=== PATIENT | female | born 1975 | race African-American/Black ===

== ENCOUNTER 2018-10-24 13:33 | Inpatient (IN) | payer OTHER ==
[2018-10-24 14:50] VITALS: BMI 16.0
--- NOTE | 2018-10-24 16:26 | HP ---
CIWA Score Nausea/Vomitin-No Nausea/No Vomiting Muscle Tremors: None Anxiety: 0-No Anxiety, at Ease Agitation: 0-Normal Activity Paroxysmal Sweats: 2 Orientation: 0-Oriented Tacttile Disturbances: 0-None Auditory Disturbances: 0-None Visual Disturbances: 0-None Headache: 0-None Present CIWA-Ar Total Score: 2 - Admission Criteria OASAS Guidelines: Admission for Medically Managed Detox: Requires at least one of the followin. CIWA greater than 12 2. Seizures within the past 24 hours 3. Delirium tremens within the past 24 hours 4. Hallucinations within the past 24 hours 5. Acute intervention needed for co occurring medical disorder 6. Acute intervention needed for co occurring psychiatric disorder 7. Severe withdrawal that cannot be handled at a lower level of care (continued vomiting, continued diarrhea, abnormal vital signs) requiring intravenous medication and/or fluids 8. Admission ROS S - HPI Allergies/Adverse Reactions: Allergies Allergy/AdvReac Type Severity Reaction Status Date / Time fish derived Allergy Verified 10/24/18 17:11 No Known Drug Allergies Allergy Verified 10/24/18 17:11 shellfish derived Allergy Verified 10/24/18 17:11 seafood Allergy Uncoded 10/24/18 17:11 History of Present Illness: pt here requesting detox from etoh use , reports started in teenage years (13- 15) , reports daily 10 drinks liquor , in the past beer , reports currently binge- drinking once / month , reports irritability and cravings if not drinking , denies seizures, blackouts, tremors , falls while intoxicated , current symptoms as above , latest use yesterday 2-3 drinks. cannabis use : daily " a lot " since teens crack cocaine - stopped in tobacco :reports smoking " a lot " , trying to quit . PMHx : dm ( dx 2009 type II) , asthma ( childhood , [place]/ [place]) , bronchitis meds : verified w/ pharmacy [id number] PShx : denies psych : depression , bipolar d/o . Exam Limitations: No Limitations - Ebola screening Have you traveled outside of the country in the last 21 days: No Have you had contact with anyone from an Ebola affected area: No Have you been sick,other than usual withdrawal symptoms: No Do you have a fever: No - Review of Systems Constitutional: No Symptoms Reported EENT: reports: See HPI, Other (glasses, upper dentures) Respiratory: reports: No Symptoms reported Cardiac: reports: No Symptoms Reported GI: reports: No Symptoms Reported : reports: No Symptoms Reported Musculoskeletal: reports: No Symptoms Reported Integumentary: reports: No Symptoms Reported Neuro: reports: No Symptoms reported Endocrine: reports: See HPI Psychiatric: reports: Orientated x3 Patient History - Smoking Cessation Smoking history: Current every day smoker Have you smoked in the past 12 months: Yes Hx Chewing Tobacco Use: No Initiated information on smoking cessation: No - Substances Abused Alcohol Route: Oral Frequency: Daily Amount used: quart/day of liquor Age of first use: 14 Date of Last Use: 10/18/18 Family Disease History - Family Disease History Family Disease History: Other: Grandparent (aunt - Dm , asthma ), Father (asthma ), Mother (asthma ) Admission Physical Exam BHS - Vital Signs Vital Signs: Vital Signs - 24 hr 10/24/18 14:48 Temperature 98.5 F Pulse Rate 90 Respiratory 18 Rate Blood Pressure 105/61 - Physical General Appearance: Yes: No Apparent Distress, Thin, Anxious HEENTM: Yes: EOMI, Hearing grossly Normal, Normocephalic, Normal Voice Respiratory: Yes: Chest Non-Tender, Lungs Clear, Normal Breath Sounds Neck: Yes: No masses,lesions,Nodules, Trachea in good position Cardiology: Yes: Regular Rhythm, Regular Rate, S1, S2 Abdominal: Yes: Normal Bowel Sounds, Soft Back: Yes: Normal Inspection Musculoskeletal: Yes: Gait Steady Extremities: Yes: Normal Range of Motion, Non-Tender Neurological: Yes: Fully Oriented, Alert, Motor Strength 5/5 Integumentary: Yes: Normal Color - Diagnostic (1) Cannabis dependence Current Visit: Yes Status: Acute (2) Alcohol abuse Current Visit: Yes Status: Acute (3) Nicotine dependence Current Visit: Yes Status: Acute Qualifiers: Nicotine product type: cigarettes BHS Breath Alcohol Content Breath Alcohol Content: 0 Urine Pregancy Test - Result Urine Test Results: Negative - NO Line Present Urine Drug Screen - Results Drug Screen Negative: No Urine Drug Screen Results: THC-Marijuana Inpatient Rehab Admission - Rehab Decision to Admit Inpatient rehab admission?: Yes - Initial Determination Are CD services needed?: Yes Free of communicable disease: Yes Not in need of hospitalization: Yes - Rehab Admission Criteria Previous failed treatment: Yes Poor recovery environment: Yes Comorbidities: No Lacks judgement: Yes Patient is meeting Inpatient Rehab admission criteria:: Yes
[2018-10-24] MEDS ORDERED: MAGNESIUM HYDROX 2400MG/30ML ORAL SUSPENSION 30 ML CUP PO PRN (16:34)
[2018-10-24] MEDS ORDERED: MENTHOL/PHENOL 1 EACH UD MM PRN (16:34)
[2018-10-24] MEDS ORDERED: guaiFENesin 200 MG/10 ML 10 ML UNIT-DOSE CUPS PO PRN (16:34)
[2018-10-24] MEDS ORDERED: ACETAMINOPHEN 325 MG TABLET (FP) PO PRN (16:34)
[2018-10-24] MEDS ORDERED: MAG HYDROX/AL HYDROX/SIMETH 30 ML UNIT-DOSE CUP PO PRN (16:34)
[2018-10-24] MEDS ORDERED: MAGNESIUM CITRATE 300 ML BOTTLE PO PRN (16:34)
[2018-10-24] MEDS ORDERED: P-EPHED 60MG/TRIPROLIDI 2.5MG TABLET PO PRN (16:34)
[2018-10-24] MEDS ORDERED: IBUPROFEN 400 MG TABLET (FP) PO PRN (16:34)
[2018-10-24] MEDS ORDERED: ALBUTEROL SO4 0.083% IH SOL 2.5 MG/3 ML VIAL.NEB. NEB PRN (16:36)
[2018-10-24] MEDS ORDERED: MELATONIN 5 MG TABLETS PO PRN (22:00)
[2018-10-24] MEDS: PATIENT'S OWN MEDICATION (NON-FORMULARY) (Clobetasol Propionate/Emoll [Clobetasol Emollien TP SCH (22:17)
[2018-10-24] MEDS: THIAMINE HCL 100 MG TABLET (FP) PO SCH (22:55)
[2018-10-24] MEDS: CYPROHEPTADINE HCL 4 MG TABLET PO SCH (22:55)
[2018-10-24] MEDS: FERROUS SO4 325 MG TABLET (FP) PO SCH (22:55)
[2018-10-25] MEDS: metFORMIN HCL 500 MG TABLET (FP) PO SCH (06:38)
[2018-10-25] MEDS: PRENATAL VITAMINS W/ FOLIC ACID TABLET (FP) PO SCH (10:12)
[2018-10-25] MEDS: FERROUS SO4 325 MG TABLET (FP) PO SCH ×2 (10:12→21:17)
[2018-10-25] MEDS: NICOTINE 14 MG/24 HOURS TOPICAL PATCH TD SCH (10:13)
[2018-10-25] MEDS ORDERED: TUBERCULIN PPD 5 TU/0.1ML VIAL ID ONE (11:46)
[2018-10-25] MEDS: SPIRONOLACTONE 25 MG TABLET (FP) PO SCH (12:02)
[2018-10-25 12:09] LABS: MCH 29.8 pg (25.7-33.7); MCHC 32.8 g/dl (32.0-36.0); MEAN CELL VOLUME 90.8 fl (80-96)
[2018-10-25 12:12] LABS: HEMATOCRIT 49.3 % (32.4-45.2); HEMOGLOBIN 16.2 GM/dL (10.7-15.3); MEAN PLT VOLUME 9.3 fl (7.5-11.1); PLATELET COUNT 268 K/MM3 (134-434); RBC 5.43 M/mm3 (3.60-5.2); RDW 14.2 % (11.6-15.6); WHITE BLOOD COUNT 8.7 K/mm3 (4.0-10.0)
[2018-10-25 12:33] LABS: ALBUMIN 3.5 g/dl (3.4-5.0); ALK PHOS 103 U/L (45-117); ANION GAP 9 MMOL/L (8-16); BILIRUBIN,TOTAL 0.4 mg/dL (0.2-1); BLOOD UREA NITROGEN 9 mg/dL (7-18); CALCIUM 8.8 mg/dL (8.5-10.1); CHLORIDE 106 mmol/L (98-107); CO2 24 mmol/L (21-32); CREATININE 0.9 mg/dL (0.55-1.3); GLUCOSE,RANDOM 72 mg/dL (74-106); POTASSIUM 4.5 mmol/L (3.5-5.1); SGOT/AST 19 U/L (15-37); SGPT/ALT 22 U/L (13-61); SODIUM 139 mmol/L (136-145); TOT PROT 6.7 g/dl (6.4-8.2)
[2018-10-25] MEDS: PATIENT'S OWN MEDICATION (NON-FORMULARY) (Clobetasol Propionate/Emoll [Clobetasol Emollien TP SCH (13:51)
[2018-10-25 19:44] LABS: URINE APPEARANCE CLEAR; URINE BILIRUBIN NEGATIVE (<2.0 mg/dL); URINE COLOR STRAW; URINE GLUCOSE (UA) NEGATIVE (NEGATIVE); URINE KETONE NEGATIVE (NEGATIVE); URINE LEUK ESTERASE NEGATIVE (NEGATIVE); URINE NITRITE NEGATIVE (NEGATIVE); URINE PROTEIN NEGATIVE (NEGATIVE); URINE UROBILINOGEN NEGATIVE mg/dL (0.2-1.0)
[2018-10-25] MEDS: THIAMINE HCL 100 MG TABLET (FP) PO SCH (21:37)
[2018-10-25] MEDS: CYPROHEPTADINE HCL 4 MG TABLET PO SCH (21:39)
[2018-10-26] MEDS: metFORMIN HCL 500 MG TABLET (FP) PO SCH (07:26)
[2018-10-26] MEDS: SPIRONOLACTONE 25 MG TABLET (FP) PO SCH (10:21)
[2018-10-26] MEDS: PRENATAL VITAMINS W/ FOLIC ACID TABLET (FP) PO SCH (10:21)
[2018-10-26] MEDS: NICOTINE 14 MG/24 HOURS TOPICAL PATCH TD SCH (10:21)
[2018-10-26] MEDS: FERROUS SO4 325 MG TABLET (FP) PO SCH ×2 (10:22→21:17)
[2018-10-26] MEDS: PATIENT'S OWN MEDICATION (NON-FORMULARY) (Clobetasol Propionate/Emoll [Clobetasol Emollien TP SCH (10:26)
[2018-10-26] MEDS: THIAMINE HCL 100 MG TABLET (FP) PO SCH (21:17)
[2018-10-26] MEDS: CYPROHEPTADINE HCL 4 MG TABLET PO SCH (21:17)
[2018-10-27] MEDS: metFORMIN HCL 500 MG TABLET (FP) PO SCH (06:50)
[2018-10-27] MEDS: FERROUS SO4 325 MG TABLET (FP) PO SCH ×2 (10:47→21:49)
[2018-10-27] MEDS: NICOTINE 14 MG/24 HOURS TOPICAL PATCH TD SCH (10:48)
[2018-10-27] MEDS: PRENATAL VITAMINS W/ FOLIC ACID TABLET (FP) PO SCH (10:48)
[2018-10-27] MEDS: PATIENT'S OWN MEDICATION (NON-FORMULARY) (Clobetasol Propionate/Emoll [Clobetasol Emollien TP SCH (10:49)
[2018-10-27] MEDS: SPIRONOLACTONE 25 MG TABLET (FP) PO SCH ×2 (11:05→11:13)
--- NOTE | 2018-10-27 13:49 | PN ---
[facility] Progress Note Note: PATIENTS PHARMACY CALLED AT [phone] TO CONFIRM ESTRADIOL ORDER. PHARMACIST THALIA CONFIRMED ESTRADIOL 10MG IM EVERY 2 WEEKS. MEDICATION ORDERED. Vital Signs Temperature 98.9 F 10/27/18 07:09 Pulse Rate 105 H 10/27/18 10:55 Respiratory Rate 18 10/27/18 07:09 Blood Pressure 105/66 10/27/18 10:55 O2 Sat by Pulse Oximetry (%) Laboratory Tests 10/25/18 10/25/18 10/25/18 06:36 09:40 09:40 WBC 8.7 RBC 5.43 H Hgb 16.2 H Hct 49.3 H MCV 90.8 MCH 29.8 MCHC 32.8 RDW 14.2 Plt Count 268 MPV 9.3 Sodium 139 Potassium 4.5 Chloride 106 Carbon Dioxide 24 Anion Gap 9 BUN 9 Creatinine 0.9 Creat Clearance w eGFR > 60 POC Glucometer 83 Random Glucose 72 L Calcium 8.8 Total Bilirubin 0.4 AST 19 ALT 22 Alkaline Phosphatase 103 Total Protein 6.7 Albumin 3.5 Urine Color Urine Appearance Urine pH Ur Specific [place] Urine Protein Urine Glucose (UA) Urine Ketones Urine Blood Urine Nitrite Urine Bilirubin Urine Urobilinogen Ur Leukocyte Esterase RPR Titer 10/25/18 10/25/18 10/25/18 09:40 14:00 16:50 WBC RBC Hgb Hct MCV MCH MCHC RDW Plt Count MPV Sodium Potassium Chloride Carbon Dioxide Anion Gap BUN Creatinine Creat Clearance w eGFR POC Glucometer 72 Random Glucose Calcium Total Bilirubin AST ALT Alkaline Phosphatase Total Protein Albumin Urine Color Straw Urine Appearance Clear Urine pH 7.0 Ur Specific [place] 1.009 L Urine Protein Negative Urine Glucose (UA) Negative Urine Ketones Negative Urine Blood Negative Urine Nitrite Negative Urine Bilirubin Negative Urine Urobilinogen Negative Ur Leukocyte Esterase Negative RPR Titer Nonreactive 10/26/18 10/26/18 10/27/18 07:26 17:23 06:47 WBC RBC Hgb Hct MCV MCH MCHC RDW Plt Count MPV Sodium Potassium Chloride Carbon Dioxide Anion Gap BUN Creatinine Creat Clearance w eGFR POC Glucometer 81 70 114 Random Glucose Calcium Total Bilirubin AST ALT Alkaline Phosphatase Total Protein Albumin Urine Color Urine Appearance Urine pH Ur Specific [place] Urine Protein Urine Glucose (UA) Urine Ketones Urine Blood Urine Nitrite Urine Bilirubin Urine Urobilinogen Ur Leukocyte Esterase RPR Titer
[2018-10-27] MEDS ORDERED: ONDANSETRON 8 MG TABLET (FP) PO PRN (15:04)
--- NOTE | 2018-10-27 15:04 | PN ---
[facility] Progress Note Note: NOTIFIED BY RN PATIENT HAD EPISODE OF NAUSEA AND VOMITING X 2. PATIENT EVALUATED WHILE IN BED. DENIES ABDOMINAL PAIN, CHEST PAIN, SOB AND DIZZINESS. PATIENT REPORTS HAVING REGULAR BM AND LAST TIME SHE MOVED BOWELS WAS LAST NIGHT. REPORTS GOOD APPETITE UP UNTIL TODAY. V/S T 99.5-72-18 BP 117/82 PE: ALERT AND ORIENTED X 3 SKIN WARM AND DRY CAR S1S2 RESP CTA BL GI SOFT BS+ NT, ND EXT NO EDEMA A/P NAUSEA AND VOMITING WILL ORDER ZOFRAN FOR N/V ENCOURAGE ORAL FLUIDS CONTINUE TO MONITOR IF SX, WORSEN DO LAB WORK UP
[2018-10-27] MEDS ORDERED: ONDANSETRON *ODT* 4 MG TABLET SL PRN (15:28)
[2018-10-27] MEDS ORDERED: PT OWN MED DRAWER 7, Y5N ONE (16:44)
[2018-10-27] MEDS: CYPROHEPTADINE HCL 4 MG TABLET PO SCH (21:49)
[2018-10-27] MEDS: THIAMINE HCL 100 MG TABLET (FP) PO SCH (21:49)
[2018-10-28] MEDS: metFORMIN HCL 500 MG TABLET (FP) PO SCH (06:50)
[2018-10-28] MEDS: PRENATAL VITAMINS W/ FOLIC ACID TABLET (FP) PO SCH (09:44)
[2018-10-28] MEDS: FERROUS SO4 325 MG TABLET (FP) PO SCH ×2 (09:44→21:22)
[2018-10-28] MEDS: NICOTINE 14 MG/24 HOURS TOPICAL PATCH TD SCH (09:44)
[2018-10-28] MEDS: SPIRONOLACTONE 25 MG TABLET (FP) PO SCH (09:45)
[2018-10-28] MEDS: PATIENT'S OWN MEDICATION (NON-FORMULARY) (Clobetasol Propionate/Emoll [Clobetasol Emollien TP SCH (09:45)
[2018-10-28] MEDS ORDERED: ESTRADIOL VALERATE IM SCH ×3 (10:00→17:45)
[2018-10-28] MEDS ORDERED: PT OWN MED DRAWER 7, Y5N ONE ×2 (10:18→15:41)
[2018-10-28] MEDS ORDERED: SPIRONOLACTONE 25 MG TABLET (FP) PO ONE (14:58)
--- NOTE | 2018-10-28 15:29 | PN ---
[facility] Progress Note Note: client needs aldactone for testosterone suppression. Her BP is low; held aldactone until BP stabilizes. BP 106/77; aldactone given.
[2018-10-28] MEDS: THIAMINE HCL 100 MG TABLET (FP) PO SCH (21:22)
[2018-10-28] MEDS: CYPROHEPTADINE HCL 4 MG TABLET PO SCH (21:22)
[2018-10-29] MEDS: metFORMIN HCL 500 MG TABLET (FP) PO SCH (06:52)
[2018-10-29] MEDS ORDERED: PT OWN MED DRAWER 7, Y5N ONE (09:24)
--- NOTE | 2018-10-29 10:00 | PN ---
S Progress Note (SOAP) Subjective: Patient requesting that her fingersticks be reduced to once a day. Denies s/s of hyper or hypoglycemia.On Metformin 1,000 once a day. Objective: 10/29/18 09:59 Vital Signs - 24 hr 10/28/18 10/28/18 10/29/18 10:00 13:10 00:30 Temperature 99.2 F Pulse Rate 110 H 108 H Respiratory 16 16 Rate Blood Pressure 107/77 106/72 10/29/18 10/29/18 10/29/18 03:30 07:13 09:13 Temperature 98.3 F Pulse Rate 99 H 114 H Respiratory 16 18 Rate Blood Pressure 100/75 113/78 10/29/18 10:00 10/25/18 09:40 10/25/18 09:40 Blood glucose has been < 126 for the past few days Assessment: Diabetes, type 2, controlled. 10/29/18 10:01 Plan: reduce fingersticks to once a day.
[2018-10-29] MEDS: NICOTINE 14 MG/24 HOURS TOPICAL PATCH TD SCH (10:03)
[2018-10-29] MEDS: FERROUS SO4 325 MG TABLET (FP) PO SCH ×2 (10:04→21:33)
[2018-10-29] MEDS: SPIRONOLACTONE 25 MG TABLET (FP) PO SCH (10:04)
[2018-10-29] MEDS: PRENATAL VITAMINS W/ FOLIC ACID TABLET (FP) PO SCH (10:04)
[2018-10-29] MEDS: PATIENT'S OWN MEDICATION (NON-FORMULARY) (Clobetasol Propionate/Emoll [Clobetasol Emollien TP SCH (10:05)
[2018-10-29] MEDS: CYPROHEPTADINE HCL 4 MG TABLET PO SCH (21:33)
[2018-10-29] MEDS: THIAMINE HCL 100 MG TABLET (FP) PO SCH (21:33)
[2018-10-30] MEDS: metFORMIN HCL 500 MG TABLET (FP) PO SCH (06:39)
[2018-10-30] MEDS: SPIRONOLACTONE 25 MG TABLET (FP) PO SCH (10:19)
[2018-10-30] MEDS: NICOTINE 14 MG/24 HOURS TOPICAL PATCH TD SCH (10:19)
[2018-10-30] MEDS: FERROUS SO4 325 MG TABLET (FP) PO SCH ×2 (10:19→21:36)
[2018-10-30] MEDS: PRENATAL VITAMINS W/ FOLIC ACID TABLET (FP) PO SCH (10:19)
[2018-10-30] MEDS: PATIENT'S OWN MEDICATION (NON-FORMULARY) (Clobetasol Propionate/Emoll [Clobetasol Emollien TP SCH (10:20)
[2018-10-30] MEDS: THIAMINE HCL 100 MG TABLET (FP) PO SCH (21:36)
[2018-10-30] MEDS: CYPROHEPTADINE HCL 4 MG TABLET PO SCH (21:36)
[2018-10-31] MEDS: metFORMIN HCL 500 MG TABLET (FP) PO SCH (07:01)
[2018-10-31] MEDS ORDERED: COLLOIDAL OATMEAL 1 BAR EACH TP PRN (08:23)
[2018-10-31] MEDS: FERROUS SO4 325 MG TABLET (FP) PO SCH ×2 (10:51→22:02)
[2018-10-31] MEDS: PRENATAL VITAMINS W/ FOLIC ACID TABLET (FP) PO SCH (10:51)
[2018-10-31] MEDS: SPIRONOLACTONE 25 MG TABLET (FP) PO SCH (10:52)
[2018-10-31] MEDS: PATIENT'S OWN MEDICATION (NON-FORMULARY) (Clobetasol Propionate/Emoll [Clobetasol Emollien TP SCH (10:54)
[2018-10-31] MEDS: NICOTINE 14 MG/24 HOURS TOPICAL PATCH TD SCH (10:54)
[2018-10-31] MEDS: THIAMINE HCL 100 MG TABLET (FP) PO SCH (22:02)
[2018-10-31] MEDS: CYPROHEPTADINE HCL 4 MG TABLET PO SCH (22:02)
[2018-11-01] MEDS: metFORMIN HCL 500 MG TABLET (FP) PO SCH (06:34)
[2018-11-01] MEDS: PATIENT'S OWN MEDICATION (NON-FORMULARY) (Clobetasol Propionate/Emoll [Clobetasol Emollien TP SCH (10:45)
[2018-11-01] MEDS: FERROUS SO4 325 MG TABLET (FP) PO SCH ×2 (10:45→21:33)
[2018-11-01] MEDS: PRENATAL VITAMINS W/ FOLIC ACID TABLET (FP) PO SCH (10:45)
[2018-11-01] MEDS: NICOTINE 14 MG/24 HOURS TOPICAL PATCH TD SCH (10:45)
[2018-11-01] MEDS: SPIRONOLACTONE 25 MG TABLET (FP) PO SCH (10:46)
[2018-11-01] MEDS: CYPROHEPTADINE HCL 4 MG TABLET PO SCH (21:33)
[2018-11-01] MEDS: THIAMINE HCL 100 MG TABLET (FP) PO SCH (21:33)
[2018-11-02] MEDS: metFORMIN HCL 500 MG TABLET (FP) PO SCH (06:56)
[2018-11-02] MEDS ORDERED: PT OWN MED DRAWER 7, Y5N ONE (08:41)
[2018-11-02] MEDS: SPIRONOLACTONE 25 MG TABLET (FP) PO SCH (10:55)
[2018-11-02] MEDS: FERROUS SO4 325 MG TABLET (FP) PO SCH ×2 (10:55→21:38)
[2018-11-02] MEDS: PRENATAL VITAMINS W/ FOLIC ACID TABLET (FP) PO SCH (10:55)
[2018-11-02] MEDS: NICOTINE 14 MG/24 HOURS TOPICAL PATCH TD SCH (10:55)
[2018-11-02] MEDS: PATIENT'S OWN MEDICATION (NON-FORMULARY) (Clobetasol Propionate/Emoll [Clobetasol Emollien TP SCH (10:56)
[2018-11-02] MEDS: THIAMINE HCL 100 MG TABLET (FP) PO SCH (21:38)
[2018-11-02] MEDS: CYPROHEPTADINE HCL 4 MG TABLET PO SCH (21:38)
[2018-11-03] MEDS: metFORMIN HCL 500 MG TABLET (FP) PO SCH (06:55)
[2018-11-03] MEDS ORDERED: PT OWN MED DRAWER 7, Y5N ONE (08:51)
[2018-11-03] MEDS: SPIRONOLACTONE 25 MG TABLET (FP) PO SCH (10:07)
[2018-11-03] MEDS: PATIENT'S OWN MEDICATION (NON-FORMULARY) (Clobetasol Propionate/Emoll [Clobetasol Emollien TP SCH (10:08)
[2018-11-03] MEDS: FERROUS SO4 325 MG TABLET (FP) PO SCH ×2 (10:08→21:17)
[2018-11-03] MEDS: NICOTINE 14 MG/24 HOURS TOPICAL PATCH TD SCH (10:08)
[2018-11-03] MEDS: PRENATAL VITAMINS W/ FOLIC ACID TABLET (FP) PO SCH (10:09)
--- NOTE | 2018-11-03 13:05 | PN ---
[facility] Progress Note Note: PT WITH ADMISSION HX OF TYPE 2 DM. NURSE REPORTS PT IS NOT SURE WHY SHE IS TAKING THE METFORMIN AND DOES NOT TAKE IT AT HOME. PT'S BGM HAS BEEN LESS THAN 115 MG/DL AND ON METFORMIN 1000 MG PO DAILY. PT REQUESTING RE-EVALUATION OF MED. CMP Sodium 139 mmol/L (136-145) 10/25/18 09:40 Potassium 4.5 mmol/L (3.5-5.1) 10/25/18 09:40 Chloride 106 mmol/L (98-107) 10/25/18 09:40 Carbon Dioxide 24 mmol/L (21-32) 10/25/18 09:40 Anion Gap 9 MMOL/L (8-16) 10/25/18 09:40 BUN 9 mg/dL (7-18) 10/25/18 09:40 Creatinine 0.9 mg/dL (0.55-1.3) 10/25/18 09:40 Creat Clearance w eGFR > 60 (>60) 10/25/18 09:40 POC Glucometer 95 UNITS (80-120) 11/03/18 06:54 Random Glucose 72 mg/dL (74-106) L 10/25/18 09:40 Calcium 8.8 mg/dL (8.5-10.1) 10/25/18 09:40 Total Bilirubin 0.4 mg/dL (0.2-1) 10/25/18 09:40 AST 19 U/L (15-37) 10/25/18 09:40 ALT 22 U/L (13-61) 10/25/18 09:40 Alkaline Phosphatase 103 U/L (45-117) 10/25/18 09:40 Total Protein 6.7 g/dl (6.4-8.2) 10/25/18 09:40 Albumin 3.5 g/dl (3.4-5.0) 10/25/18 09:40 Vital Signs (72 hours) 11/01/18 11/01/18 11/01/18 00:30 03:30 07:13 Temperature 97.7 F Pulse Rate 88 Respiratory 17 18 18 Rate Blood Pressure 108/76 11/01/18 11/02/18 11/02/18 10:00 00:30 03:30 Temperature Pulse Rate 100 H Respiratory 16 18 16 Rate Blood Pressure 136/88 11/02/18 11/02/18 11/03/18 07:26 10:00 00:30 Temperature 97.9 F Pulse Rate 78 88 Respiratory 18 16 Rate Blood Pressure 123/87 114/77 11/03/18 11/03/18 11/03/18 03:30 07:13 10:00 Temperature 98.1 F Pulse Rate 100 H 85 Respiratory 16 16 Rate Blood Pressure 117/78 97/61 Laboratory Tests 10/25/18 10/25/18 10/25/18 06:36 09:40 09:40 WBC 8.7 RBC 5.43 H Hgb 16.2 H Hct 49.3 H MCV 90.8 MCH 29.8 MCHC 32.8 RDW 14.2 Plt Count 268 MPV 9.3 Sodium 139 Potassium 4.5 Chloride 106 Carbon Dioxide 24 Anion Gap 9 BUN 9 Creatinine 0.9 Creat Clearance w eGFR > 60 POC Glucometer 83 Random Glucose 72 L Calcium 8.8 Total Bilirubin 0.4 AST 19 ALT 22 Alkaline Phosphatase 103 Total Protein 6.7 Albumin 3.5 Urine Color Urine Appearance Urine pH Ur Specific [place] Urine Protein Urine Glucose (UA) Urine Ketones Urine Blood Urine Nitrite Urine Bilirubin Urine Urobilinogen Ur Leukocyte Esterase RPR Titer HIV 1&2 Antibody Screen HIV P24 Antigen 10/25/18 10/25/18 10/25/18 09:40 14:00 16:50 WBC RBC Hgb Hct MCV MCH MCHC RDW Plt Count MPV Sodium Potassium Chloride Carbon Dioxide Anion Gap BUN Creatinine Creat Clearance w eGFR POC Glucometer 72 Random Glucose Calcium Total Bilirubin AST ALT Alkaline Phosphatase Total Protein Albumin Urine Color Straw Urine Appearance Clear Urine pH 7.0 Ur Specific [place] 1.009 L Urine Protein Negative Urine Glucose (UA) Negative Urine Ketones Negative Urine Blood Negative Urine Nitrite Negative Urine Bilirubin Negative Urine Urobilinogen Negative Ur Leukocyte Esterase Negative RPR Titer Nonreactive HIV 1&2 Antibody Screen HIV P24 Antigen 10/26/18 10/26/18 10/27/18 07:26 17:23 06:47 WBC RBC Hgb Hct MCV MCH MCHC RDW Plt Count MPV Sodium Potassium Chloride Carbon Dioxide Anion Gap BUN Creatinine Creat Clearance w eGFR POC Glucometer 81 70 114 Random Glucose Calcium Total Bilirubin AST ALT Alkaline Phosphatase Total Protein Albumin Urine Color Urine Appearance Urine pH Ur Specific [place] Urine Protein Urine Glucose (UA) Urine Ketones Urine Blood Urine Nitrite Urine Bilirubin Urine Urobilinogen Ur Leukocyte Esterase RPR Titer HIV 1&2 Antibody Screen HIV P24 Antigen 10/27/18 10/28/18 10/28/18 17:09 06:50 07:00 WBC RBC Hgb Hct MCV MCH MCHC RDW Plt Count MPV Sodium Potassium Chloride Carbon Dioxide Anion Gap BUN Creatinine Creat Clearance w eGFR POC Glucometer 92 108 Random Glucose Calcium Total Bilirubin AST ALT Alkaline Phosphatase Total Protein Albumin Urine Color Urine Appearance Urine pH Ur Specific [place] Urine Protein Urine Glucose (UA) Urine Ketones Urine Blood Urine Nitrite Urine Bilirubin Urine Urobilinogen Ur Leukocyte Esterase RPR Titer HIV 1&2 Antibody Screen Negative HIV P24 Antigen Negative 10/28/18 10/29/18 10/30/18 16:38 06:52 06:38 WBC RBC Hgb Hct MCV MCH MCHC RDW Plt Count MPV Sodium Potassium Chloride Carbon Dioxide Anion Gap BUN Creatinine Creat Clearance w eGFR POC Glucometer 105 82 85 Random Glucose Calcium Total Bilirubin AST ALT Alkaline Phosphatase Total Protein Albumin Urine Color Urine Appearance Urine pH Ur Specific [place] Urine Protein Urine Glucose (UA) Urine Ketones Urine Blood Urine Nitrite Urine Bilirubin Urine Urobilinogen Ur Leukocyte Esterase RPR Titer HIV 1&2 Antibody Screen HIV P24 Antigen 10/31/18 11/01/18 11/02/18 07:00 06:32 06:52 WBC RBC Hgb Hct MCV MCH MCHC RDW Plt Count MPV Sodium Potassium Chloride Carbon Dioxide Anion Gap BUN Creatinine Creat Clearance w eGFR POC Glucometer 74 71 77 Random Glucose Calcium Total Bilirubin AST ALT Alkaline Phosphatase Total Protein Albumin Urine Color Urine Appearance Urine pH Ur Specific [place] Urine Protein Urine Glucose (UA) Urine Ketones Urine Blood Urine Nitrite Urine Bilirubin Urine Urobilinogen Ur Leukocyte Esterase RPR Titer HIV 1&2 Antibody Screen HIV P24 Antigen NAD MEDICALLY STABLE PLAN:D/C METFORMIN 1000 MG MONITOR BGM TWICE DAILY BEFORE MEALS. RESTART ON 500 MG PO DAILY IF HYPERGLYCEMIA.
[2018-11-03] MEDS: CYPROHEPTADINE HCL 4 MG TABLET PO SCH (21:17)
[2018-11-03] MEDS: THIAMINE HCL 100 MG TABLET (FP) PO SCH (21:17)
[2018-11-04] MEDS: SPIRONOLACTONE 25 MG TABLET (FP) PO SCH (10:18)
[2018-11-04] MEDS: PRENATAL VITAMINS W/ FOLIC ACID TABLET (FP) PO SCH (10:18)
[2018-11-04] MEDS: FERROUS SO4 325 MG TABLET (FP) PO SCH ×2 (10:18→21:27)
[2018-11-04] MEDS: NICOTINE 14 MG/24 HOURS TOPICAL PATCH TD SCH (10:18)
[2018-11-04] MEDS: PATIENT'S OWN MEDICATION (NON-FORMULARY) (Clobetasol Propionate/Emoll [Clobetasol Emollien TP SCH (10:19)
[2018-11-04] MEDS: CYPROHEPTADINE HCL 4 MG TABLET PO SCH (21:27)
[2018-11-04] MEDS: THIAMINE HCL 100 MG TABLET (FP) PO SCH (21:27)
[2018-11-05] MEDS: PRENATAL VITAMINS W/ FOLIC ACID TABLET (FP) PO SCH (10:30)
[2018-11-05] MEDS: NICOTINE 14 MG/24 HOURS TOPICAL PATCH TD SCH (10:31)
[2018-11-05] MEDS: FERROUS SO4 325 MG TABLET (FP) PO SCH ×2 (10:31→21:51)
[2018-11-05] MEDS: PATIENT'S OWN MEDICATION (NON-FORMULARY) (Clobetasol Propionate/Emoll [Clobetasol Emollien TP SCH (10:32)
[2018-11-05] MEDS: SPIRONOLACTONE 25 MG TABLET (FP) PO SCH (10:33)
[2018-11-05] MEDS: CYPROHEPTADINE HCL 4 MG TABLET PO SCH (21:51)
[2018-11-05] MEDS: THIAMINE HCL 100 MG TABLET (FP) PO SCH (21:51)
[2018-11-06] MEDS ORDERED: PT OWN MED DRAWER 7, Y5N ONE (08:31)
[2018-11-06] MEDS: SPIRONOLACTONE 25 MG TABLET (FP) PO SCH (10:21)
[2018-11-06] MEDS: FERROUS SO4 325 MG TABLET (FP) PO SCH ×2 (10:22→21:55)
[2018-11-06] MEDS: PATIENT'S OWN MEDICATION (NON-FORMULARY) (Clobetasol Propionate/Emoll [Clobetasol Emollien TP SCH (10:22)
[2018-11-06] MEDS: NICOTINE 14 MG/24 HOURS TOPICAL PATCH TD SCH (10:22)
[2018-11-06] MEDS: PRENATAL VITAMINS W/ FOLIC ACID TABLET (FP) PO SCH (10:22)
[2018-11-06] MEDS: THIAMINE HCL 100 MG TABLET (FP) PO SCH (21:55)
[2018-11-06] MEDS: CYPROHEPTADINE HCL 4 MG TABLET PO SCH (21:55)
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
[2018-11-07] MEDS: PRENATAL VITAMINS W/ FOLIC ACID TABLET (FP) PO SCH (10:47)
[2018-11-07] MEDS: FERROUS SO4 325 MG TABLET (FP) PO SCH ×2 (10:47→21:40)
[2018-11-07] MEDS: NICOTINE 14 MG/24 HOURS TOPICAL PATCH TD SCH (10:47)
[2018-11-07] MEDS: SPIRONOLACTONE 25 MG TABLET (FP) PO SCH (10:47)
[2018-11-07] MEDS: PATIENT'S OWN MEDICATION (NON-FORMULARY) (Clobetasol Propionate/Emoll [Clobetasol Emollien TP SCH (10:50)
--- NOTE | 2018-11-07 13:18 | PN ---
S Progress Note Note: PATIENT CONTINUES WITH POOR APPETITE, DENIES N/V/D. CURRENTLY ON PERIACTIN 4MG HS. WILL INCREASE TO 4MG TID AC, CONTINUE SUPPLEMENTS AND MONITOR CLINICALLY. Vital Signs Temperature 97.7 F 11/07/18 07:26 Pulse Rate 121 H 11/07/18 09:38 Respiratory Rate 17 11/07/18 09:38 Blood Pressure 115/71 11/07/18 09:38 O2 Sat by Pulse Oximetry (%)
--- NOTE | 2018-11-07 13:21 | PN ---
S Progress Note Note: PATIENT REPORTS HX OF POOR APPETITE AND WEIGHT LOSS. PATIENT DENIES N/V/D AND CURRENTLY TREATED WITH PERIACTIN 4MG HS. WILL INCREASE PERIACTIN TO 4MG AC TID, CONTINUE SUPPLEMENT AND MONITOR CLINICALLY.
[2018-11-07] MEDS: CYPROHEPTADINE HCL 4 MG TABLET PO SCH (17:57)
[2018-11-07] MEDS: THIAMINE HCL 100 MG TABLET (FP) PO SCH (21:40)
[2018-11-07] MEDS: MIRTAZAPINE 30 MG TABLET (FP) PO SCH (21:41)
[2018-11-08] MEDS: CYPROHEPTADINE HCL 4 MG TABLET PO SCH ×3 (07:44→19:10)
[2018-11-08] MEDS: PRENATAL VITAMINS W/ FOLIC ACID TABLET (FP) PO SCH (10:07)
[2018-11-08] MEDS: SPIRONOLACTONE 25 MG TABLET (FP) PO SCH (10:07)
[2018-11-08] MEDS: FERROUS SO4 325 MG TABLET (FP) PO SCH ×2 (10:07→21:13)
[2018-11-08] MEDS: PATIENT'S OWN MEDICATION (NON-FORMULARY) (Clobetasol Propionate/Emoll [Clobetasol Emollien TP SCH (10:08)
[2018-11-08] MEDS: NICOTINE 14 MG/24 HOURS TOPICAL PATCH TD SCH (10:08)
[2018-11-08] MEDS: THIAMINE HCL 100 MG TABLET (FP) PO SCH (21:13)
[2018-11-08] MEDS: MIRTAZAPINE 30 MG TABLET (FP) PO SCH (21:13)
[2018-11-09] MEDS: CYPROHEPTADINE HCL 4 MG TABLET PO SCH ×3 (07:36→16:39)
[2018-11-09] MEDS: FERROUS SO4 325 MG TABLET (FP) PO SCH ×2 (10:07→21:35)
[2018-11-09] MEDS: SPIRONOLACTONE 25 MG TABLET (FP) PO SCH (10:07)
[2018-11-09] MEDS: PATIENT'S OWN MEDICATION (NON-FORMULARY) (Clobetasol Propionate/Emoll [Clobetasol Emollien TP SCH (10:07)
[2018-11-09] MEDS: NICOTINE 14 MG/24 HOURS TOPICAL PATCH TD SCH (10:08)
[2018-11-09] MEDS: PRENATAL VITAMINS W/ FOLIC ACID TABLET (FP) PO SCH (10:08)
[2018-11-09] MEDS: MIRTAZAPINE 30 MG TABLET (FP) PO SCH (21:35)
[2018-11-09] MEDS: THIAMINE HCL 100 MG TABLET (FP) PO SCH (21:35)
[2018-11-10] MEDS: CYPROHEPTADINE HCL 4 MG TABLET PO SCH ×3 (06:58→16:34)
[2018-11-10] MEDS ORDERED: PT OWN MED DRAWER 7, Y5N ONE ×2 (08:45→14:15)
[2018-11-10] MEDS: NICOTINE 14 MG/24 HOURS TOPICAL PATCH TD SCH (10:15)
[2018-11-10] MEDS: FERROUS SO4 325 MG TABLET (FP) PO SCH ×2 (10:15→21:30)
[2018-11-10] MEDS: PRENATAL VITAMINS W/ FOLIC ACID TABLET (FP) PO SCH (10:15)
[2018-11-10] MEDS: SPIRONOLACTONE 25 MG TABLET (FP) PO SCH (10:15)
[2018-11-10] MEDS: PATIENT'S OWN MEDICATION (NON-FORMULARY) (Clobetasol Propionate/Emoll [Clobetasol Emollien TP SCH (10:17)
[2018-11-10] MEDS: THIAMINE HCL 100 MG TABLET (FP) PO SCH (21:30)
[2018-11-10] MEDS: MIRTAZAPINE 30 MG TABLET (FP) PO SCH (21:30)
[2018-11-11] MEDS: CYPROHEPTADINE HCL 4 MG TABLET PO SCH ×3 (07:09→17:54)
[2018-11-11] MEDS ORDERED: ESTRADIOL VALERATE IM SCH (10:00)
[2018-11-11] MEDS: SPIRONOLACTONE 25 MG TABLET (FP) PO SCH (10:30)
[2018-11-11] MEDS: PATIENT'S OWN MEDICATION (NON-FORMULARY) (Clobetasol Propionate/Emoll [Clobetasol Emollien TP SCH (10:36)
[2018-11-11] MEDS: FERROUS SO4 325 MG TABLET (FP) PO SCH ×2 (10:36→21:43)
[2018-11-11] MEDS: NICOTINE 14 MG/24 HOURS TOPICAL PATCH TD SCH (10:36)
[2018-11-11] MEDS: PRENATAL VITAMINS W/ FOLIC ACID TABLET (FP) PO SCH (10:36)
[2018-11-11] MEDS ORDERED: PT OWN MED DRAWER 7, Y5N ONE (10:57)
[2018-11-11] MEDS: MIRTAZAPINE 30 MG TABLET (FP) PO SCH (21:42)
[2018-11-11] MEDS: THIAMINE HCL 100 MG TABLET (FP) PO SCH (21:42)
[2018-11-12] MEDS: CYPROHEPTADINE HCL 4 MG TABLET PO SCH ×3 (06:54→16:35)
[2018-11-12] MEDS ORDERED: PT OWN MED DRAWER 7, Y5N ONE ×2 (09:19→11:13)
[2018-11-12] MEDS: PRENATAL VITAMINS W/ FOLIC ACID TABLET (FP) PO SCH (10:06)
[2018-11-12] MEDS: SPIRONOLACTONE 25 MG TABLET (FP) PO SCH (10:07)
[2018-11-12] MEDS: PATIENT'S OWN MEDICATION (NON-FORMULARY) (Clobetasol Propionate/Emoll [Clobetasol Emollien TP SCH (10:07)
[2018-11-12] MEDS: FERROUS SO4 325 MG TABLET (FP) PO SCH ×2 (10:07→22:05)
[2018-11-12] MEDS: NICOTINE 14 MG/24 HOURS TOPICAL PATCH TD SCH (10:07)
[2018-11-12] MEDS: MIRTAZAPINE 30 MG TABLET (FP) PO SCH (22:05)
[2018-11-12] MEDS: THIAMINE HCL 100 MG TABLET (FP) PO SCH (22:05)
[2018-11-13] MEDS: CYPROHEPTADINE HCL 4 MG TABLET PO SCH (06:50)
[2018-11-13 07:20] VITALS: TEMP 98
--- NOTE | 2018-11-13 08:13 | PN ---
[facility] Progress Note Note: patient discharged today. Will receive aftercare at [facility]. PCP is Dr. Fairchild at [facility]. Client plans an appointment with PCP in one week.
[2018-11-13 09:14] VITALS: BP 107/71; PULSE 112
[2018-11-13] MEDS: NICOTINE 14 MG/24 HOURS TOPICAL PATCH TD SCH (09:16)
[2018-11-13] MEDS: FERROUS SO4 325 MG TABLET (FP) PO SCH (09:16)
--- NOTE | 2018-11-13 09:16 | PN ---
[facility] Progress Note Note: Patient is discharged today. Scripts for 30 days supply of medications(Remeron Wellbutrin XL) are electronically transmitted to [facility] at [address] [place] [id number]
[2018-11-13] MEDS: PATIENT'S OWN MEDICATION (NON-FORMULARY) (Clobetasol Propionate/Emoll [Clobetasol Emollien TP SCH (09:17)
[2018-11-13] MEDS: SPIRONOLACTONE 25 MG TABLET (FP) PO SCH (09:17)
[2018-11-13] MEDS: PRENATAL VITAMINS W/ FOLIC ACID TABLET (FP) PO SCH (09:18)
== END 2018-11-13 09:21 | disposition home or self-care (01) | DRG 772 ==
LOC: YASAS 13:33 → Y3E 17:36
PROVIDERS: ADMIT Neuromusculoskeletal Medicine & OMM; ATTEND Neuromusculoskeletal Medicine & OMM
PROC: HZ42ZZZ Group Counseling for Substance Abuse Treatment, Cognitive-Behavioral (ICD-10-PCS; principal; 2018-10-24)
DX: F10.20 Alcohol dependence, uncomplicated (principal); F12.20 Cannabis dependence, uncomplicated; F17.210 Nicotine dependence, cigarettes, uncomplicated; F31.9 Bipolar disorder, unspecified; F39 Unspecified mood [affective] disorder; F19.282 Other psychoactive substance dependence with psychoactive substance-induced sleep disorder; I10 Essential (primary) hypertension; D64.9 Anemia, unspecified; E11.9 Type 2 diabetes mellitus without complications; R11.2 Nausea with vomiting, unspecified; Z91.013 Allergy to seafood; Z59.0 Homelessness
CPT/HCPCS: 36415; 80053; 81003; 82962; 85027; 86593; 87389; Q0162